=== PATIENT | female | born 1970 | race Two or more races ===

== ENCOUNTER 2023-12-31 13:48 | Emergency (ER) | payer OTHER ==
[~2023-12-31] VITALS: Ht 154.9 cm; Wt 70.4 kg
[2023-12-31] MEDS: cefTRIAXone 1GM/50ML D5W 50 ML IV ONE (16:13)
--- NOTE | 2023-12-31 16:14 | ED.PDOC ---
History of Present Illness(SKN HPI Comments A 53 YEAR OLD FEMALE PRESENTS TO THE ED WITH COMPLAINT OF LEFT SIDED FACIAL REDNESS AND SWELLING. PATIENT STATES SHE HAS BEEN EXPERIENCING LEFT-SIDED FACIAL REDNESS, PAIN, AND SWELLING FOR THE PAST 3 DAYS. PATIENT NOTES SHE INITIALLY HAD A SMALL PIMPLE ON HER LEFT CHEEK, BUT NOTES IT CONTINUED TO GET WORSE AND BECAME BIGGER. PATIENT NOTES SHE WAS PRESCRIBED KEFLEX FOR THIS INFECTION WITH NO IMPROVEMENT IN HER SYMPTOMS. PATIENT DENIES FEVER, CHILLS, SHORTNESS OF BREATH, CHEST PAIN, ABDOMINAL PAIN, NAUSEA, VOMITING, HEADACHE, OR OTHER COMPLAINTS. NO OTHER SYMPTOMS OR MODIFYING FACTORS AT THIS TIME. PATIENT IS ALERT, ORIENTED X 4, AND HAS STEADY GAIT. Chief Complaint: Abscess Time Seen by MD: 14:16 History of Present Illness: Nurses Notes, Medications, Allergies Allergies: Coded Allergies: NO KNOWN ALLERGIES (Unverified , 12/31/23) Information Source: Patient Mode of Arrival: Ambulatory Severity: Moderate Timing: Days Duration: Since onset, Days Prehospital treatment: None Location: Face (LEFT SIDE OF FACE) Mechanism: Preceding Wound (SKIN PIMPLE) Occurence: Indoors Object: None Retained Foreign Body: No Wound Type: Other (CELLULITIS) Immunization Status of Animal: NA Tetanus: Unknown History of: Diabetes Associated Signs and Symptoms: Redness, Swelling, Pain Past Medical History PAST MEDICAL HISTORY: DM Surgical History: Denies all surgeries ETCHER APPRENTICE History: No Pertinent ETCHER APPRENTICE History Family History Family History: Reviewed,noncontributory to illness Social History Smoker: Non-Smoker Alcohol: Denies ETOH Use Drugs: Denies Drug Use Lives In: Home Constitutional: denies: chills, diaphoresis, fatigue, fever, malaise, sweats, weakness, others EENTM: denies: blurred vision, double vision, ear bleeding, ear discharge, ear drainage, ear pain, ear ringing, eye pain, eye redness, hearing loss, mouth pain, mouth swelling, nasal discharge, nose bleeding, nose congestion, nose pain, photophobia, tearing, throat pain, throat swelling, voice changes, others Respiratory: denies: cough, hemoptysis, orthopnea, SOB at rest, shortness of breath, SOB with excertion, stridor, wheezing, others Cardiovascular: denies: chest pain, dizzy spells, diaphoresis, Dyspnea on exertion, edema, irregular heart beat, left arm pain, lightheadedness, p alpitations, PND, syncope, others Gastrointestinal: denies: abdomen distended, abdominal pain, blood streaked bowels, constipated, diarrhea, dysphagia, difficulty swallowing, hematemesis, melena, nausea, poor appetite, poor fluid intake, rectal bleeding, rectal pain, vomiting, others Genitourinary: denies: abnormal vagina bleeding, burning, dyspareunia, dysuria, flank pain, frequency, hematuria, incontinence, pain, , vagina discharge, urgency, others Neurological: denies: dizziness, fainting, headache, left sided numbness, left sided weakness, numbness, paresthesia, pre-existing deficit, right sided numbness, right sided weakness, seizure, speech problems, tingling, tremors, weakness, others Musculoskeletal: denies: back pain, gout, joint pain, joint swelling, muscle pain, muscle stiffness, neck pain, others Integumetry: reports: lumps, others (LEFT-SIDED FACIAL REDNESS AND SWELLING); denies: bruises, change in color, change in hair/nails, dryness, laceration, lesions, rash, wounds Allergic/Immunocompromised: denies: Difficulty Healing, Frequent Infections, Hives, Itching, others Hematologic/Lymphatic: denies: anemia, blood clots, easy bleeding, easy bruising, swollen glands, others Endocrine: denies: excessive hunger, excessive sweating, excessive thirst, excessive urination, flushing, intolerance to cold, intolerance to heat, unexplained weight gain, unexplained weight loss, others Psychiatric: denies: anxiety, bipolar disorder, depression, hopeless, panic disorder, schizophrenia, sleepless, suicidal, others All Other Systems: Reviewed and Negative Physical Exam General Appearance: No Apparent Distress, Normal HEENT: Normal ENT Inspection, PERRL/EOMI, Pharynx Normal, TMs Normal, Other (TENDERNESS, REDNESS AND MILD SWELLING WITH A BUMP ON LEFT CHEEK, +CELLULITIS. ) Neck: Full Range of Motion, Non-Tender, Normal, Normal Inspection Respiratory: Chest Non-Tender, Lungs Clear, No Accessory Muscle Use, No Respiratory Distress, Normal Breath Sounds Cardiovascular: No Edema, No JVD, No Murmur, No Gallop, Normal Peripheral Pulses, Regular Rate/Rhythm Breast Exam: Deferred Gastrointestinal: No Organomegaly, Non Tender, No Pulsatile Mass, Normal Bowel Sounds, Soft Genitalia: Deferred Pelvic: Deferred Rectal: Deferred Extremities: No calf tenderness, Normal capillary refill, Normal inspection, Normal range of motion, Non-tender, No pedal edema Musculoskeletal : Apperance: Normal Neurologic: Alert, accounting tutor II-XII nml as Tested, No Motor Deficits, Normal Affect, Normal Mood, No Sensory Deficits Cerebellar Function: Normal Reflexes: Normal Skin: Dry, Warm, Wounds ([id number] BUMP WITH LOCALIZED ERYTHEMA, SWELLING AND TENDERNESS ON LEFT CHEEK, NO PUS DRAINAGE AND OPEN WOUND. ERYTHEMA AND SWELLING ON LEFT SIDE FACE. ) Peripheral Pulses: 2+ carotid (R), 2+ carotid (L) Lymphatic: No Adenopathy Was a procedure done? Was a procedure done?: No Differential Diagnosis (INTG) Differential Diagnosis: N/A Differential Diagnosis: Abscess, Atopic dermatitis, Cellulitis, Contact Dermatitis, Erysipelas, Urticaria, Other (FACIAL CELLULITIS, SKIN PIMPLE, FURUNCLE, INSECT BITE) Differential Diagnosis: N/A Abscess: N/A Differential Diagnosis: N/A X-Ray, Labs, Meds, VS Vital Signs Date Time Temp Pulse Resp B/P (MAP) Pulse Ox O2 Delivery O2 Flow Rate FiO2 12/31/23 15:56 78 18 98 Room Air 12/31/23 15:56 78 18 139/72 (94) 98 12/31/23 15:19 98.1 76 20 147/97 (114) 98 Lab Test 12/31/23 16:00 Range/Units White Blood Count 10.3 4.4-10.8 10^3/uL Red Blood Count 3.96 L 4.0-5.20 10^6/uL Hemoglobin 12.1 L 12.2-16.2 g/dL Hematocrit 35.5 L 36.0-46.0 % Mean Corpuscular Volume 89.8 80.0-100.0 fL Mean Corpuscular Hemoglobin 30.6 28.0-32.0 pg Mean Corpuscular Hemoglobin Concent 34.1 32.0-36.0 g/dL Red Cell Distribution Width 13.1 11.8-14.3 % Platelet Count 312 140-450 10^3/uL Mean Platelet Volume 8.2 6.9-10.8 fL Neutrophils (%) (Auto) 65.1 37.0-80.0 % Lymphocytes (%) (Auto) 25.6 10.0-50.0 % Monocytes (%) (Auto) 6.4 0.0-12.0 % Eosinophils (%) (Auto) 2.6 0.0-7.0 % Basophils (%) (Auto) 0.3 0.0-2.0 % Neutrophils # (Auto) 6.7 1.6-8.6 10 ^3/uL Lymphocytes # (Auto) 2.6 0.4-5.4 10 ^3/uL Monocytes # (Auto) 0.7 0-1.3 10 ^3/uL Eosinophils # (Auto) 0.3 0-0.8 10 ^3/uL Basophils # (Auto) 0 0-0.2 10 ^3/uL Nucleated Red Blood Cells 0.0 % Sodium Level 140 136-145 mmol/L Potassium Level 4.1 3.5-5.1 mmol/L Chloride Level 102 98-107 mmol/L Carbon Dioxide Level 31 20-31 mmol/L Anion Gap 7 5-15 Blood Urea Nitrogen 15 9-23 mg/dL Creatinine 0.80 0.550-1.02 mg/dL Glomerular Filtration Rate Calc 88 >90 mL/min BUN/Creatinine Ratio 18.8 10.0-20.0 Serum Glucose 340 H 74-106 mg/dL Lactic Acid Level 1.6 0.4-2.0 mmol/L Calcium Level 10.2 8.7-10.4 mg/dL Current Medications Medications (Trade) Dose Ordered Sig/Drake Route Start Time Stop Time Status Last Admin Ceftriaxone Sodium 50 ml @ 100 mls/hr ONCE ONCE IV 12/31/23 16:00 12/31/23 16:29 DC 12/31/23 16:13 Clindamycin Phosphate 50 ml @ 50 mls/hr ONCE ONCE IV 12/31/23 16:00 12/31/23 16:59 DC 12/31/23 16:20 Sodium Chloride 1,000 ml @ 1,000 mls/hr Q1H ONCE IV 12/31/23 16:45 12/31/23 17:44 12/31/23 16:48 Ketorolac Tromethamine (Toradol Injection) 30 mg ONCE ONCE IV 12/31/23 17:00 12/31/23 17:01 DC 12/31/23 17:22 X-Ray, Labs, Meds, VS Comment LABS ORDERED: CBC, BMP, LACTIC ACID W/REFLEX, BLOOD CULTURE REVIEWED AND INTERPRETED RESULTS: GLUC 340 TREATMENT: ROCEPHIN 1 G IV, CLINDAMYCIN 900 MG IV, TORADOL 30MG IVP, 0.9 NS 1L IV BOLUS A 53 YEAR OLD FEMALE PRESENTED TO THE ED C/O LEFT-SIDED FACIAL REDNESS AND SWELLING FOR THE PAST 3 DAYS. PATIENT NOTED THAT SHE HAD ALREADY BEEN PRESCRIBED KEFLEX, BUT NOTES THERE HAS BEEN NO IMPROVEMENT IN HER SYMPTOMS. . UPON MY PHYSICAL EXAMINATION, THE PATIENT HAD REDNESS AND SWELLING NOTED TO THE LEFT SIDE OF HER FACE/CHEEK REGION CONSISTENT WITH CELLULITIS. MY DIFFERENTIAL DIAGNOSIS INCLUDES, CELLULITIS, ERYSIPELAS, ABSCESS, INSECT BITE, FURUNCLE, SOFT TISSUE INFECTION. LABS WERE ORDERED FOR THE PATIENT WHICH REVEALED A GLUCOSE OF 340, BUT NO OTHER ACUTE FINDINGS.. PATIENT WAS MEDICATED HERE IN THE ED WITH ROCEPHIN 1 G IV, NS 1L IV, AND CLINDAMYCIN 900 MG IV. DUE TO THE PATIENT'S SY MPTOMS BEING CONSISTENT WITH FACIAL CELLULITIS, HISTORY OF DIABETES, AND THE FACT THAT SHE FAILED OUTPATIENT TREATMENT. I HAVE DETERMINED THE PATIENT SHOULD BE ADMITTED FOR FURTHER TREATMENT EVALUATION. ON-CALL HOSPITALIST WILL BE CONTACTED FOR ADMISSION OF THE PATIENT. Time of 1ST Reevaluation: 17:00 Reevaluation 1ST: Unchanged Patient Education/Counseling: Diagnosis, Treatment Family Education/Counseling: Diagnosis, Treatment Departure 1 Departure Time of Disposition: 17:30 Impression: Primary Impression: Facial cellulitis Additional Impressions: Failure of outpatient treatment Uncontrolled diabetes mellitus Qualified Codes: E11.65 - Type 2 diabetes mellitus with hyperglycemia Disposition: ADMITTED INPATIENT Admit to: Med Surg Condition: Serious Critical Care Note Critical Care Time?: No Stability Stability form required: Yes Unstable for transfer: Requires medication, ED Physician Assesment, Possible rapid decline I personally scribed for OMAR GARCIA ([email or web address]) on 12/31/23 at 16:14. Electron ically submitted by Christiano Pack ([email or web address]). I personally scribed for OMAR GARCIA ([email or web address]) on 12/31/23 at 17:25. Electronically submitted by Christiano Pack ([email or web address]). OMAR GARCIA Dec 31, 2023 16:14
[2023-12-31] MEDS: CLINDAMYCIN 900MG IV 50 ML IV ONE (16:20)
[2023-12-31 16:34] LABS: Basophils # (auto) 0 10 ^3/uL (0-0.2); Basophils % (auto) 0.3 % (0.0-2.0); Eosinophils # (auto) 0.3 10 ^3/uL (0-0.8); Eosinophils % (auto) 2.6 % (0.0-7.0); Hematocrit 35.5 % (36.0-46.0); Hemoglobin 12.1 g/dL (12.2-16.2); Lymphocytes # (auto) 2.6 10 ^3/uL (0.4-5.4); Lymphocytes % (auto) 25.6 % (10.0-50.0); Mean Corpuscular Hemoglobin 30.6 pg (28.0-32.0); Mean Corpuscular Hgb Conc. 34.1 g/dL (32.0-36.0); Mean Corpuscular Volume 89.8 fL (80.0-100.0); Monocytes # (auto) 0.7 10 ^3/uL (0-1.3); Monocytes % (auto) 6.4 % (0.0-12.0); Neutrophils # (auto) 6.7 10 ^3/uL (1.6-8.6); Neutrophils % (auto) 65.1 % (37.0-80.0); Platelet Count (auto) 312 10^3/uL (140-450); Red Blood Cells 3.96 10^6/uL (4.0-5.20); Red Cell Distribution Width 13.1 % (11.8-14.3); White Blood Cell 10.3 10^3/uL (4.4-10.8)
[2023-12-31 16:41] LABS: Chloride 102 mmol/L (98-107); Potassium 4.1 mmol/L (3.5-5.1); Sodium 140 mmol/L (136-145)
[2023-12-31 16:42] LABS: Anion Gap 7 (5-15); Calcium 10.2 mg/dL (8.7-10.4); Carbon Dioxide 31 mmol/L (20-31)
[2023-12-31 16:47] LABS: BUN/Creatinine Ratio 18.8 (10.0-20.0); Blood Urea Nitrogen 15 mg/dL (9-23); Glucose 340 mg/dL (74-106)
[2023-12-31] MEDS: SODIUM CHLORIDE 0.9% 1,000 ML IV ONE ×2 (16:48→18:41)
[2023-12-31] MEDS: KETOROLAC TROMETH 30 MG/ML 1ML VIAL IV ONE (17:22)
[2023-12-31] MEDS ORDERED: GLIP10TA9 PO (18:32)
[2023-12-31] MEDS ORDERED: METF-929 PO (18:32)
[2023-12-31] MEDS ORDERED: ATOR40TA52 PO (18:32)
[2023-12-31 20:15] VITALS: BP 128/62; PULSE 68; RESP 18; RESP 19; TEMP 98; O2SAT 98
[2023-12-31] MEDS: IOHEXOL 300 MG/ML 100ML BOTTLE IJ ONE (21:56)
[2023-12-31] MEDS ORDERED: CLIN1CAP70 PO (22:41)
[2023-12-31] MEDS ORDERED: LEVO500T91 PO (22:41)
--- NOTE | 2023-12-31 22:50 | DVH ---
CT HEAD CONTRAST ONLY INDICATION: : 53 old Female Evaluated for abscess/severity of infection EXAM DATE: 12/31/2023 10:14 PM COMPARISON: None RADIATION DOSE: CTDIvol: 54 mGy, DLP: 1081 mGy*cm PROCEDURE: CT scans of the head were obtained from the vertex to the skull base. IV contrast was give n. Sagittal and coronal reconstructions were provided. All CT scans at this medical facility are performed using dose modulation techniques as appropriate t o a performed exam including the following: Automated exposure control was utilized; adjustment of th e MA and/or KV according to patient size; and use of iterative reconstruction technique. FINDINGS: The brain shows normal morphology and javier-white matter differentiation, without intracr anial hemorrhage, extra-axial fluid collection, mass effect or acute large vessel infarct. The ventri cles are normal in size. The basal cisterns are patent. The skull and visible facial bones are intact . The paranasal sinuses, mastoid air cells and middle ear cavities are well-aerated. Skin thickening and inflammatory fat stranding of the left malar cheek subcutaneous fat. IMPRESSION: Skin thickening and inflammatory fat stranding of the left malar cheek subcutaneous fat could be a ph legmon. However no focal fluid collection for an abscess. No acute intracranial abnormality.
[2023-12-31] MEDS ORDERED: HYDROcodone-ACET 5/325MG TAB PO PRN (23:00)
[2023-12-31] MEDS ORDERED: MORPHINE SULFATE INJ 2 MG/ml SYRG IV PRN (23:00)
[2023-12-31] MEDS: ACETAMINOPHEN 325 MG TAB PO PRN (23:14)
[2024-01-01] VITALS: BP 128/67; PULSE 64; RESP 17; TEMP 98; O2SAT 97
[2024-01-01 01:16] VITALS: TEMP 98.7
[2024-01-01 01:37] VITALS: BP 131/76; PULSE 16; RESP 16; O2SAT 95
--- NOTE | 2024-01-02 14:08 | DVHINCON2 ---
Date of service: Dec 31, [address] Cummings Reason for Consultation Outpatient follow up History of Present Illness This is a 53-year-old female with listed past medical history who presents with complaint of a facial rash evaluated at [facility] Emergency room. Patient reports that she only started taking Keflex about three days prior to presentation but did not have any significant improvement. In fact she believes the rash worsened slightly so she presented to the emergency room. Evaluation held here revealed no significant acute findings or underlying abscess. Patient recommended for close outpatient follow up with alternative antibiotic therapy. No major events reported overnight. Patient denies complaints of fevers, chills, change in appetite, chest pain, palpitations, cough, shortness of breath, dyspnea on exertion, abdominal pain, nausea, vomiting, diarrhea, constipation, dysuria, lightheadedness, weakness, paresthesia or other complaints. Last bowel movement was yesterday, brown, soft, no melena, no hematochezia. Past Medical History Diabetes mellitus type 2 Hyperlipidemia Family History: Diabetes mellitus G8 MOTHER, Social History Patient denies current smoking, alcohol use or recreational/illicit drug use. Allergies: Coded Allergies: NO KNOWN ALLERGIES (Unverified , 12/31/23) Home Meds Active Scripts Clindamycin Hcl (Clindamycin Hcl) 300 Mg Cap, 600 MG PO Q8HR, #84 CAP Prov:ENDA DORAN MD 12/31/23 Levofloxacin Hemihydrate (LEVAQUIN 500 MG) 500 Mg Tab, 500 MG PO DAILY, #14 TAB Prov:EDNA DORAN MD 12/31/23 Reported Medications Atorvastatin Calcium (ATORVASTATIN CALCIUM) 40 Mg Tab, 1 TAB PO QPM, #30 TAB 5 Refills 12/31/23 Glipizide (Glipizide) 10 Mg Tab, 10 MG PO BID for 30 Days, MG 12/31/23 Metformin HCl (Metformin Hydrochloride) 1,000 Mg Tab, 1000 MG PO BID, TAB 12/31/23 Vital Signs Vital Signs Date Time Temp Pulse Resp B/P (MAP) Pulse Ox O2 Delivery O2 Flow Rate FiO2 01/01/24 01:37 64 16 131/76 (94) 95 01/01/24 01:37 Room Air* 0 21 01/01/24 01:16 98.7 Physical Exam Physical Exam: General: This is a 53-year-old female appearing stated age in no acute distress. HEENT: Pupils equal and reactive to light and accommodation. Extraocular muscles intact. Mucous membranes moist. No appreciable poor dentition gross examination. Conjunctivae [place]. Anicteric Sclera. Left lower facial swelling with overlying erythema without open wounds. No obvious drainage. No fluctuation. Mild warmth to palpation. Lungs: Bilateral air entry; no wheezes, rhonchi, rales. Heart: Regular Rate and Rhythm. Normal S1/S2. Abdomen: Bowel Sounds Normoactive, soft, non-tender, non-distended, no cva tenderness. Extremities: No clubbing, cyanosis, edema. No calf tenderness. Pedal pulses 2+. Neurologic: Patient alert, awake and oriented x 3. Cranial nerves II through XII intact. No focal deficits on gross sensorimotor exam. Gait is stable. Labs/Diagnostic Data Labs Test 12/31/23 17:32 12/31/23 16:00 Range/Units POC Glucose 276 H 70-106 mg/dl White Blood Count 10.3 4.4-10.8 10^3/uL Red Blood Count 3.96 L 4.0-5.20 10^6/uL Hemoglobin 12.1 L 12.2-16.2 g/dL Hematocrit 35.5 L 36.0-46.0 % Mean Corpuscular Volume 89.8 80.0-100.0 fL Mean Corpuscular Hemoglobin 30.6 28.0-32.0 pg Mean Corpuscular Hemoglobin Concent 34.1 32.0-36.0 g/dL Red Cell Distribution Width 13.1 11.8-14.3 % Platelet Count 312 140-450 10^3/uL Mean Platelet Volume 8.2 6.9-10.8 fL Neutrophils (%) (Auto) 65.1 37.0-80.0 % Lymphocytes (%) (Auto) 25.6 10.0-50.0 % Monocytes (%) (Auto) 6.4 0.0-12.0 % Eosinophils (%) (Auto) 2.6 0.0-7.0 % Basophils (%) (Auto) 0.3 0.0-2.0 % Neutrophils # (Auto) 6.7 1.6-8.6 10 ^3/uL Lymphocytes # (Auto) 2.6 0.4-5.4 10 ^3/uL Monocytes # (Auto) 0.7 0-1.3 10 ^3/uL Eosinophils # (Auto) 0.3 0-0.8 10 ^3/uL Basophils # (Auto) 0 0-0.2 10 ^3/uL Nucleated Red Blood Cells 0.0 % Sodium Level 140 136-145 mmol/L Potassium Level 4.1 3.5-5.1 mmol/L Chloride Level 102 98-107 mmol/L Carbon Dioxide Level 31 20-31 mmol/L Anion Gap 7 5-15 Blood Urea Nitrogen 15 9-23 mg/dL Creatinine 0.80 0.550-1.02 mg/dL Glomerular Filtration Rate Calc 88 >90 mL/min BUN/Creatinine Ratio 18.8 10.0-20.0 Serum Glucose 340 H 74-106 mg/dL Lactic Acid Level 1.6 0.4-2.0 mmol/L Calcium Level 10.2 8.7-10.4 mg/dL Microbiology Date/Time Source Procedure Growth Status 12/31/23 17:18 Blood Blood Culture - Preliminary NO GROWTH AFTER 24 HOURS OF INCUBATION. Resulted Plan/Recommendation This is a 53-year-old female with listed past medical history who presented with complaints of a left cheek visualized diagnosed with left facial cellulitis. Patient does not meet SIRS criteria. She is afebrile without leukocytosis. Albeit briefly only being on Keflex couple recommend escalating antibiotic therapy to Levaquin and clindamycin given underlying diabetes mellitus type 2. Patient verbalized agreement agreement and understanding that if she has any new, recurrent or worsening symptoms with the next 48 hours, she is to seek medical attention at nearest emergency room. She is to follow up with her primary care doctor within three days. Home health safety evaluation was also ordered and this was communicated with on-call onsite case manager from [facility]. Thank you for allowing me to participate in the care of your patient. Please do not hesitate to contact me with any further questions or concerns. All above discussed with the patient who verbalized agreement and understanding of current status and plan. All questions answered. Patient declined reaching out to any family for update. This medical document was created using an electronic medical record system with [employer] system. Although this document has been carefully reviewed, there may still be some phonetic and typographical errors. These areas are purely typographical due to imperfections of the software programs, and do not reflect any compromise in the patient's medical care Plan discussed with: Other EDNA DORAN MD Jan 02, 2024 14:08
== END 2024-01-01 01:18 | disposition home or self-care (01) ==
LOC: ER 13:48
DX: L03.211 Cellulitis of face (principal); E11.65 Type 2 diabetes mellitus with hyperglycemia
CPT/HCPCS: 36415; 70460; 80048; 82962; 83605; 85025; 87040; 96361; 96365; 96368; 96375; 99285; J0696; J1885; J3490; J7030; Q9967

== ENCOUNTER 2024-04-06 09:46 | Emergency (ER) | payer OTHER ==
[~2024-04-06] VITALS: Ht 154.9 cm; Wt 70.6 kg
[~2024-04-06 09:46] MED LIST: ATOR40TA52 PO; CLIN1CAP70 PO; GLIP10TA9 PO; LEVO500T91 PO; METF-929 PO
--- NOTE | 2024-04-06 10:30 | DVH ---
INDICATION: LOW BACK PAIN TO RIGHT LOWER LEG TECHNIQUE: 4 views of the lumbar spine were obtained. COMPARISON: None FINDINGS: There are no acute fractures or subluxations. Degenerative disc space narrowing at L5-S1. IMPRESSION: No acute fracture or subluxation.
[2024-04-06 10:32] VITALS: BP 114/74; PULSE 83; RESP 18; TEMP 97; O2SAT 99
[2024-04-06] MEDS: KETOROLAC TROMETH 60MG/2ML VIAL IM ONE (10:56)
--- NOTE | 2024-04-06 10:58 | ED.PDOC ---
Back pain HPI HPI Comments A 54 YEAR OLD FEMALE PRESENTS TO THE ED WITH COMPLAINT OF BACK PAIN X 5 DAYS. PATIENT STATES THAT HER PAIN IS LOCALIZED TO HER RIGHT BUTTOCKS, RADIATES DOWN HER RIGHT LEG, WAS SPONTANEOUS IN ONSET, AND DENIES ANY FALLS OR INJURIES PRIOR TO ONSET. PATIENT DESCRIBES PAIN SHARP. PATIENT WAS SEEN AT [facility] ON WEDNESDAY (04/04/2024) AND WAS DIAGNOSED WITH SCIATICA AND GIVEN TORADOL, WHICH PATIENT STATES DID NOT HELP THE PAIN AND IS NOW REQUESTING MORPHINE BY NAME. PATIENT DENIES FEVER, CHILLS, SHORTNESS OF BREATH, CHEST PAIN, ABDOMINAL PAIN, NAUSEA, VOMITING, HEADACHE, URINARY SYMPTOMS/INCONTINENCE, SADDLE ANESTHESIA OR OTHER COMPLAINTS. NO OTHER SYMPTOMS OR MODIFYING FACTORS AT THIS TIME. PATIENT IS ALERT, ORIENTED X 4, AND HAS STEADY GAIT. Chief Complaint: Back Pain Time Seen by MD: 10:48 Primary Care Provider: RE Reviewed Notes: Nurses Notes, Medications, Allergies Allergies: Coded Allergies: NO KNOWN ALLERGIES (Unverified , 12/31/23) Home Meds Active Scripts Hydrocodone-Acetaminophen (Hydrocodone Bitartrate/AC 5-325 mg) 1 Tab Tab, 1 TAB PO TID for 5 Days, #15 TAB Prov:OMAR GARCIA 04/06/24 Clindamycin Hcl (Clindamycin Hcl) 300 Mg Cap, 600 MG PO Q8HR, #84 CAP Prov:EDNA DORAN MD 12/31/23 Levofloxacin Hemihydrate (LEVAQUIN 500 MG) 500 Mg Tab, 500 MG PO DAILY, #14 TAB Prov:EDNA DORAN MD 12/31/23 Reported Medications Atorvastatin Calcium (ATORVASTATIN CALCIUM) 40 Mg Tab, 1 TAB PO QPM, #30 TAB 5 Refills 12/31/23 Glipizide (Glipizide) 10 Mg Tab, 10 MG PO BID for 30 Days, MG 12/31/23 Metformin HCl (Metformin Hydrochloride) 1,000 Mg Tab, 1000 MG PO BID, TAB 12/31/23 Information Source: Patient Mode of Arrival: Ambulatory Timing: Days Duration: Since onset Location of Back pain: (R) Buttocks, (B) Lower back Radiates to: Posterior: (R) Buttocks, (R) Thigh Radiates to: Lateral: (R) Buttocks, (R) Thigh Severity: Moderate Prehospital treatment: None Quality: Sharp Onset: Spontaneous History of: None Modifying Factors: Movement Associated signs and symptoms: None Past Medical History PAST MEDICAL HISTORY: DM Surgical History: Denies all surgeries PRECISION LENS GRINDER APPRENTICE History: No Pertinent PRECISION LENS GRINDER APPRENTICE History Family History Family History: Reviewed,noncontributory to illness Social History Smoker: Non-Smoker Alcohol: Denies ETOH Use Drugs: Denies Drug Use Lives In: Home Constitutional: reports: others (ANXIOUS ); denies: chills, diaphoresis, fatigue, fever, malaise, sweats, weakness EENTM: denies: blurred vision, double vision, ear bleeding, ear discharge, ear drainage, ear pain, ear ringing, eye pain, eye redness, hearing loss, mouth pain, mouth swelling, nasal discharge, nose bleeding, nose congestion, nose pain, photophobia, tearing, throat pain, throat swelling, voice changes, others Respiratory: denies: cough, hemoptysis, orthopnea, SOB at rest, shortness of breath, SOB with excertion, stridor, wheezing, others Cardiovascular: denies: chest pain, dizzy spells, diaphoresis, Dyspnea on exertion, edema, irregular heart beat, left arm pain, lightheadedness, palpitations, PND, syncope, others Gastrointestinal: denies: abdomen distended, abdominal pain, blood streaked bowels, constipated, diarrhea, dysphagia, difficulty swallowing, hematemesis, melena, nausea, poor appetite, poor fluid intake, rectal bleeding, rectal pain, vomiting, others Genitourinary: denies: abnormal vagina bleeding, burning, dyspareunia, dysuria, flank pain, frequency, hematuria, incontinence, pain, , vagina discharge, urgency, others Neurological: denies: dizziness, fainting, headache, left sided numbness, left sided weakness, numbness, paresthesia, pre-existing deficit, right sided num bness, right sided weakness, seizure, speech problems, tingling, tremors, weakness, others Musculoskeletal: reports: back pain, muscle pain; denies: gout, joint pain, joint swelling, muscle stiffness, neck pain, others Integumetry: denies: bruises, change in color, change in hair/nails, dryness, l aceration, lesions, lumps, rash, wounds, others Allergic/Immunocompromised: denies: Difficulty Healing, Frequent Infections, Hives, Itching, others Hematologic/Lymphatic: denies: anemia, blood clots, easy bleeding, easy bruising, swollen glands, others Endocrine: denies: excessive hunger, excessive sweating, excessive thirst, excessive urination, flushing, intolerance to cold, intolerance to heat, unexplained weight gain, unexplained weight loss, others Psychiatric: reports: anxiety; denies: bipolar disorder, depression, hopeless, panic disorder, schizophrenia, sleepless, suicidal, others All Other Systems: Reviewed and Negative Physical Exam General Appearance: Mild Distress, Normal, Other (ANXIOUS ) HEENT: Normal ENT Inspection, Pharynx Normal, TMs Normal Neck: Full Range of Motion, Non-Tender, Normal, Normal Inspection Respiratory: Chest Non-Tender, Lungs Clear, No Accessory Muscle Use, No Respiratory Distress, Normal Breath Sounds Cardiovascular: No Edema, No JVD, No Murmur, No Gallop, Normal Peripheral Puls es, Regular Rate/Rhythm Breast Exam: Deferred Gastrointestinal: No Organomegaly, Non Tender, No Pulsatile Mass, Normal Bowel Sounds, Soft Genitalia: Deferred Pelvic: Deferred Rectal: Deferred Extremities: No calf tenderness, Normal capillary refill, Normal inspection, Normal range of motion, Non-tender, No pedal edema Musculoskeletal : Location: Bilateral Extremity Location: Back Apperance: Tenderness: Moderate (MUSCLE SPASM ON LOW BACK, NO BONY TENDERNESS, SWELLING AND DEFORMITY. 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 Was a procedure done?: No Back Pain Differential Dx Differential Diagnosis: Musculoskeletal Pain, Strain, Other (DDD OF LOW BACK ) X-Ray, Labs, Meds, VS Vital Signs Date Time Temp Pulse Resp B/P (MAP) Pulse Ox O2 Delivery O2 Flow Rate FiO2 04/06/24 10:32 97.0 83 18 114/74 (87) 99 97.0 04/06/24 10:32 83 18 99 Room Air 04/06/24 09:50 97.0 83 18 114/74 (87) 99 Current Medications Medications (Trade) Dose Ordered Sig/Drake Route Start Time Stop Time Status Last Admin Ketorolac Tromethamine (Toradol Injection) 60 mg ONCE ONCE IM 04/06/24 11:00 04/06/24 11:01 DC 04/06/24 10:56 Acetaminophen/ Hydrocodone Bitart (Marlow 10/325MG Tab) 1 tab ONCE ONCE PO 04/06/24 11:15 04/06/24 11:16 DC 04/06/24 11:10 PATIENT: JORGE WADE ACCT: [id number] UNIT: [id number] : 1970 LOC: ER ROOM / BED: / AGE / SEX: 54 / F ADM STATUS: REG ER SERVICE [id number] ORDERING PHYSICIAN: OMAR GARCIA PROCEDURE(s): LUMB2 - LUMBAR SPINE 3 VIEW REASON: LOW BACK PAIN TO RIGHT LOWER LEG ORDER NUMBER(s): [id number], ACCESSION NUMBER(s): [id number] INDICATION: LOW BACK PAIN TO RIGHT LOWER LEG TECHNIQUE: 4 views of the lumbar spine were obtained. COMPARISON: None FINDINGS: There are no acute fractures or subluxations. Degenerative disc space narrowing at L5-S1. IMPRESSION: No acute fracture or subluxation. ATED BY: MAULIK FALCON MD DICTATED DATE/TIME: 04/06/24 102 SIGNED BY: MAULIK FALCON MD SIGNED DATE/TIME: 04/06/24 1027 X-Ray, Labs, Meds, VS Comment NORMAL X RAY RESULT: INTERPRETED BY ME. NO ACUTE FINDINGS. NO FRACTURES OR DISLOCATION. PENDING RADIOLOGIST REPORT. EXTERNAL MEDICAL RECORDS REVIEWED: [NONE] INDEPENDENT HISTORIANS: [NONE] SOCIAL DETERMINANTS OF HEALTH: [NONE] LABS ORDERED: NONE REVIEWED AND INTERPRETED RESULTS: NONE IMAGING ORDERED: NONE TREATMENTS ORDERED: TORADOL 60MG AND NORCO 10/325 PROCEDURES PERFORMED: NONE CRITICAL CARE TIME: NONE I HAVE DISCUSSED THE PATIENT WITH THE ATTENDING PHYSICIAN [PHYSICIAN'S NAME] AND HE AGREES WITH THE PATIENT'S PLAN OF CARE AND DISPOSITION. BASED ON HISTORY OF PRESENT ILLNESS, AND PHYSICAL EXAM, PATIENT WILL BE DISCHARGED HOME. DISCUSSED PLAN FOR DISCHARGE HOME WITH RX BACLOFEN AND NAPROXEN. MEDICATION WARNINGS GIVEN. SHARED DECISION MAKING: DISCUSSED WITH PATIENT THAT THEIR WORKUP WAS NORMAL. PATIENT INSTRUCTED TO FOLLOW UP WITH PRIMARY CARE PROVIDER IN 1-2 DAYS FOR RE- EVALUATION OF SYMPTOMS. PATIENT VERBALIZES UNDERSTANDING TO RETURN TO ED FOR NEW OR WORSENING SYMPTOMS OR IF FOLLOW UP WITH PCP CANNOT BE OBTAINED. PATIENT FEELS COMFORTABLE GOING HOME AT THIS TIME. ALL QUESTIONS ADDRESSED AT TIME OF DISCHARGE. Time of 1ST Reevaluation: 11:34 Reevaluation 1ST: Improved Patient Education/Counseling: Diagnosis, Treatment, Need For Follow Up Family Education/Counseling: Diagnosis, Treatment, Need For Follow Up Departure 1 Departure Time of Disposition: 11:34 Impression: Primary Impression: DDD (degenerative disc disease), lumbar Qualified Codes: M51.362 - Other intervertebral disc degeneration, lumbar region with discogenic back pain and lower extremity pain Additional Impression: Lumbar radiculopathy Disposition: HOME / SELF CARE / HOMELESS Condition: Stable Additional Instructions: FOLLOW-UP WITH PCP IN 1 TO 2 DAYS. TAKE MEDICATIONS PRESCRIBED. RETURN TO ED FOR ANY NEW OR WORSENING SYMPTOMS. e-Prescriptions Hydrocodone-Acetaminophen (Hydrocodone Bitartrate/AC 5-325 mg) 1 Tab Tab 1 TAB PO TID for 5 Days, #15 TAB Prov: OMAR GARCIA 04/06/24 Discharged With: Self Critical Care Note Critical Care Time?: No Stability Stability form required: No Heart Score Heart Score: Heart Score Response (Comments) Value History N/A 0 EKG N/A 0 Age N/A 0 Risk Factors N/A 0 Troponin N/A 0 Total 0 I personally scribed for OMAR GARCIA ([email or web address]) on 04/06/24 at 10:58. Electronically submitted by Rhett Kurtz ([email or web address]). I personally scribed for OMAR GARCIA ([email or web address]) on 04/06/24 at 11:09. Electronically submitted by Rhett Kurtz ([email or web address]). I personally scribed for OMAR GARCIA ([email or web address]) on 04/06/24 at 11:14. Electronically submitted by Rhett Kurtz ([email or web address]). OMAR GARCIA Apr 06, 2024 10:58
[2024-04-06] MEDS: HYDROcodone-ACET 10/325MG TAB PO ONE (11:10)
[2024-04-06] MEDS ORDERED: HYDR-4902 PO (11:27)
== END 2024-04-06 11:40 | disposition home or self-care (01) ==
LOC: ER 09:46
DX: M51.16 Intervertebral disc disorders with radiculopathy, lumbar region (principal); E11.9 Type 2 diabetes mellitus without complications
CPT/HCPCS: 72100; 96372